=== PATIENT | female | born 1965 | race Caucasian/White ===

== ENCOUNTER → 2025-08-28 | Outpatient (CLI) | payer OTHER ==
[~2025-08-28] MED LIST: ALBU2.5V10 NEB; ALBU8.5H INH; BIOT1TAB PO; CENT1TAB PO; D 50CAP2 PO; DILT180C28 PO; ELIQ5TAB PO; ETAN50PE PO; LEVO25TA5 PO; LOSA25TA13 PO; METHACHOLINE KIT (6 VIAL.NEB PREMIX) INH ONE; METO1TAB33 PO; MONT10TA97 PO; OMEG12003 PO; OMEP40CA5 PO; PRED20TA PO; PROBIOTIC GUMMIES PO; TOPR50TA PO; TURM500C PO; VITA-243 PO; [UNRECOGNIZED DRUG - OTHER] PO
== END ==
LOC: M CARPUL 08:14
PROVIDERS: ATTEND Physician Assistant
DX: R06.00 Dyspnea, unspecified (principal)
CPT/HCPCS: 94070; 95070; J7674